=== PATIENT | male | born 1960 | race Caucasian/White ===

== ENCOUNTER 2017-11-19 20:41 | Emergency (ER) | payer BC ==
[~2017-11-19] VITALS: Ht 188 cm; Wt 92.0 kg
[2017-11-19 22:06] VITALS: BP 140/90
== END 2017-11-19 22:06 | disposition home or self-care (01) ==
LOC: ER 20:54
DX: G93.41 Metabolic encephalopathy (principal); R55 Syncope and collapse; R56.9 Unspecified convulsions; I10 Essential (primary) hypertension; Z88.9 Allergy status to unspecified drugs, medicaments and biological substances
CPT/HCPCS: 99283; 99284